=== PATIENT | female | born 1970 | race Caucasian/White ===

== ENCOUNTER 2016-06-22 16:45 | Emergency (ER) | payer SELFPAY ==
[2016-06-22] MEDS ORDERED: LORazepam 2 MG/ML INJ ONE (17:02)
[2016-06-22] MEDS ORDERED: KETOROLAC TROMETHAMINE 30 MG/ML VIAL ONE (17:06)
[2016-06-22] MEDS ORDERED: FENTANYL 250 MCG/5 ML VIAL ONE (17:06)
[2016-06-22] MEDS ORDERED: FENTANYL 100 MCG/2 ML VIAL ONE (17:23)
--- NOTE | 2016-06-22 20:27 | ER NURSING DOCUMENTATION ---
Nurse's Notes [facility] Name:Marbella Joyner Age:45 yrs Sex:Female :1970 Arrival Date:06/22/2016 Time:16:45 Bed4 Private MD:Tripp Fountain Diagnosis:Distal Radius Fracture Presentation: 06/22 16:45 Presenting complaint: EMS states: pt slipped and fell on the ice and complains of st significant right wrist and arm pain. Transition of care: patient was not received from another setting of care. Care prior to arrival: IV initiated. gauge and site left AC. 16:45 Method Of Arrival: EMS: 410 st 16:57 Acuity: MARITA 2 st 17:25 Care prior to arrival: Medication(s) given: Fentanyl 100MCG 100mcg Intranasal. st Triage Assessment: 16:45 General: Appears uncomfortable, Behavior is cooperative, crying. Pain: Complains of st pain in right arm Pain currently is 10 out of 10 on a pain scale. Cardiovascular: No deficits noted. Respiratory: No deficits noted. GI: No deficits noted. Musculoskeletal: Circulation, motion, and sensation intact right arm is in a splint by EMS Reports pain in right arm. Historical: - Allergies: No known drug Allergies; - Home Meds: 1. Spironolactone Oral 2. Percocet Oral 3. Xanax Oral 4. mucle relaxer PRN 5. gabapentin oral 6. Doxycycline Oral - PMHx: None; - PSHx: SHOULDER SURGERY; Appendectomy; - Tetanus: unknown. - Ebola Screening: : Patient denies exposure to infectious person. Patient denies travel to an Ebola-affected area in the 21 days before illness onset. . - Social history: Smoking status: Patient states was never smoker of tobacco. Patient uses alcohol occasionally. Screenin:30 Infectious Disease Risk None. Abuse screen: pt feels safe at home. Nutritional st screening: No deficits noted. Assessment: 17:11 General: pt continues to cry. st 17:23 General: pt is able to stop crying and states that the meds took the edge off the pain. st . 18:33 General: pt resting quietly. Pt is trying to find a ride. . st Vital Signs: 16:45 BP 145 / 92; Pulse 99; Resp 24; Temp 98.0; Pulse Ox 94% on R/A; Pain 10/10; st 17:55 BP 145 / 99; st 18:00 BP 129 / 80; Pulse 99; Pulse Ox 93% ; st 18:18 Pain 1/10; st 18:28 BP 123 / 71; Resp 18; Pain 1/10; st ED Course: 16:45 Patient arrived in ED. ama 16:45 Tripp Fountain is Private Physician. ama 16:48 Scotty Flanagan MD is Attending Physician. sc 16:51 Port Xray Completed. pm1 16:57 Hawa Goldsmith, RN is Primary Nurse. st 16:[address] 17:31 Valuables Remains with patient Patient has correct armband on for positive st identification. Bed in low position. Side rails up X 1. Pulse Ox - RN Monitoring Only NIBP On - RN Monitoring Only. Ice pack to injury. 17:37 Oxygen Oxygen administration via nasal cannula @ 2L/min. st 17:48 Assist Provider Assist provider with fracture care Set up for procedure. Performed by st Scotty Flanagan MD hematoma block and finger traps used. 18:01 Simeon Faulkner DO is Referral Physician. sc 18:27 Port Xray Completed. pm1 18:[address] Administered Medications: 16:57 Drug: Toradol 30 mg; Route: IVP; Site: left antecubital; st 17:14 Follow up: Response: Pain is unchanged, physician notified st 17:14 Drug: fentaNYL (PF) 100 mcg; Route: IVP; Infused Over: 3 mins; Site: left antecubital; st 18:52 Follow up: Response: Pain is decreased st Outcome: 18:02 Discharge ordered by . la 18:52 Condition: improved st 18:52 Discharge instructions given to patient, Instructed on discharge instructions, follow up and referral plans. medication usage, [facility] 18:52 IV D/Johnny st 20:26 Patient left the ED. mk4 06/23 09:45 Discharge F/U Call: Unable to reach: non-working number nf 12:20 Discharge F/U Call: Spoke with: patient. other: Name: patient called ER requesting an nf additional prescription be written for narcotics due to poor pain control; patient has regular prescription for percocet 7.25 - dosing range discussed with patient; narcotic alternatives for pain control discussed with patient including ice and elevation and ensuring her compression wrap was the correct tension - patient agreeable to alternative means and stated she would be satisified calling her PCP tomorrow about additional narcotics; May aware of phone call Signatures: Hawa Goldsmith RN RN st Friel, Nicole, RN RN nf Chew, Scott, MD MD sc McBride, Philisha pm1 David Young, Reg Reg serjio Christianson, Alfreda mk4
--- NOTE | 2016-06-22 20:27 | ER PHYSICIAN DOCUMENTATION ---
Physician Documentation [facility] Name:Marbella Joyner Age:45 yrs Sex:Female :1970 Arrival Date:06/22/2016 Time:16:45 Bed4 Private MD:Tripp Fountain ED, Scott Disposition: 06/22/16 18:02 Discharged to Home/Self Care. Impression: Distal Radius Fracture. - Condition is Good. - Discharge Instructions: FRACTURE, Upper Extremity. - Medical Reconciliation form form. - Follow up: Simeon Faulkner DO; When: 2 - 3 days; Reason: Recheck today's complaints, Continuance of care. - Problem is new. - Symptoms have improved. HPI: 06/22 17:54 This 45 yrs old Female presents to ER via EMS with complaints of Arm Injury - sc R. 17:54 The patient or guardian complains of decreased range of motion, deformity, injury, sc pain. The complaints affect the right wrist. Context: The problem was sustained outdoors, resulted from a fall. Onset: The symptom(s)/episode began/occurred just prior to arrival. Treatment prior to arrival includes: prescription medications, splinting the affected extremity. Associated signs and symptoms: The patient has no apparent associated signs or symptoms. multiple shoulder surgeries, daily percocet use for 3 years. Historical: - Allergies: No known drug Allergies; - Home Meds: 1. Spironolactone Oral 2. Percocet Oral 3. Xanax Oral 4. mucle relaxer PRN 5. gabapentin oral 6. Doxycycline Oral - PMHx: None; - PSHx: SHOULDER SURGERY; Appendectomy; - Tetanus: unknown. - Ebola Screening: : Patient denies exposure to infectious person. Patient denies travel to an Ebola-affected area in the 21 days before illness onset. . - Social history: Smoking status: Patient states was never smoker of tobacco. Patient uses alcohol occasionally. ROS: 17:57 Constitutional: Negative for fever, chills, and weight loss. sc Eyes: Negative for injury, pain, redness, and discharge. Neck: Negative for injury, pain, and swelling. Cardiovascular: Negative for chest pain, palpitations, and edema. Respiratory: Negative for shortness of breath, cough, wheezing, and pleuritic chest pain. Back: Negative for injury and pain. Skin: Negative for injury, rash, and discoloration. 17:57 Neuro: Negative for headache, weakness, numbness, tingling, and seizure. ga 17:57 MS/extremity: Positive for injury or acute deformity, Negative for paresthesias, tingling. Exam: Constitutional: This is a well developed, well nourished patient who is awake, alert, and in no acute distress. Head/Face: Normocephalic, atraumatic. Neck: Trachea midline, no thyromegaly or masses palpated, and no cervical lymphadenopathy. Supple, full range of motion without nuchal rigidity, or vertebral point tenderness. No meningismus. Cardiovascular: Regular rate and rhythm with a normal S1 and S2. No gallops, murmurs, or rubs. Normal PMI, no JVD. No pulse deficits. Respiratory: Lungs have equal breath sounds bilaterally, clear to auscultation and percussion. No rales, rhonchi or wheezes noted. No increased work of breathing, no retractions or nasal flaring. Abdomen/GI: Soft, non-tender, with normal bowel sounds. No distension or tympany. No guarding or rebound. No evidence of tenderness throughout. Skin: Warm, dry with normal turgor. Normal color with no rashes, no lesions, and no evidence of cellulitis. 17:57 Neuro: Awake and alert, GCS 15, oriented to person, place, time, and situation. ga Cranial nerves II-XII grossly intact. Motor strength 5/5 in all extremities. Sensory grossly intact. Cerebellar exam normal. Normal gait. 17:57 Musculoskeletal/extremity: Extremities: grossly normal except: decreased ROM, deformity, pain, Circulation is intact in all extremities. Sensation intact. Compartment Syndrome exam of affected extremity: is normal. Vital Signs: 16:45 BP 145 / 92; Pulse 99; Resp 24; Temp 98.0; Pulse Ox 94% on R/A; Pain 10/10; st 17:55 BP 145 / 99; st 18:00 BP 129 / 80; Pulse 99; Pulse Ox 93% ; st 18:18 Pain 1/10; st 18:28 BP 123 / 71; Resp 18; Pain 1/10; st Procedures: 17:58 Reduction: of the right wrist, using manipulation, Immobilized with OCL splint, Patient sc tolerated well. Post reduction film - reveals improved alignment. Splinting: Splint applied to right wrist using Orthoglass splint, applied by myself. post reduction film - reveals improved alignment, Examined by me, post splint application: neurovascular intact, Patient tolerated well. MDM: 16:48 Patient medically screened. ga 17:59 Differential diagnosis: closed fracture. Data reviewed: vital signs, nurses notes, ga radiologic studies, and as a result, I will discharge patient. Response to treatment: the patient's symptoms have markedly improved after treatment. Dispensed Medications: 16:57 Drug: Toradol 30 mg; Route: IVP; Site: left antecubital; st 17:14 Follow up: Response: Pain is unchanged, physician notified st 17:14 Drug: fentaNYL (PF) 100 mcg; Route: IVP; Infused Over: 3 mins; Site: left antecubital; st 18:52 Follow up: Response: Pain is decreased st Signatures: Hawa Goldsmith RN RN st Chew, Scott, MD MD sc King, Melody 4
== END 2016-06-22 20:27 | disposition home or self-care (01) ==
LOC: ER 16:45
DX: S52.501A Unspecified fracture of the lower end of right radius, initial encounter for closed fracture (principal); W00.0XXA Fall on same level due to ice and snow, initial encounter; Y92.89 Other specified places as the place of occurrence of the external cause; Y93.01 Activity, walking, marching and hiking; Z79.899 Other long term (current) drug therapy; Z99.89 Dependence on other enabling machines and devices; Z74.3 Need for continuous supervision
CPT/HCPCS: 29125; 96374; 96375; 99285; A0427; J1885; J2060

== ENCOUNTER 2016-06-23 18:35 | Observation (INO) | payer SELFPAY ==
[2016-06-23] MEDS ORDERED: ONDANSETRON HCL 4 MG/2 ML VIAL ONE (19:22)
[2016-06-23] MEDS ORDERED: HYDROmorphone HCL 1 MG/ML SYR ONE ×2 (19:22→19:41)
[2016-06-23 19:39] LABS: BASOPHIL# 0.1 X 10^3uL (0.0-0.1); BASOPHILS 0.9 % (0.0-2.0); EOSINOPHILS 3.1 % (0.0-6.0); EOSINOPHILS# 0.3 X 10^3uL (0.0-0.4); HEMATOCRIT 37.3 % (36.0-48.0); HEMOGLOBIN 12.6 g/dL (12.0-16.0); LYMPHOCYTES 28.5 % (20.0-40.0); LYMPHOCYTES# 2.3 X 10^3uL (0.8-3.8); MEAN CELL VOLUME 81.9 fL (80.0-100.0); MEAN CORPUS. HGB CONCENTRATION 33.8 g/dL (32.0-36.0); MEAN CORPUSCULAR HEMOGLOBIN 27.7 pg (29.0-35.0); MEAN PLATELET VOLUME 7.7 fL (7.4-10.4); MONOCYTES 11.2 % (2.0-10.0); MONOCYTES# 0.9 X 10^3uL (0.2-1.0); NEUTROPHILS 56.3 % (54.0-75.0); NEUTROPHILS# 4.5 X 10^3uL (2.6-6.7); PLATELET COUNT 277 X 10^3uL (130-440); RED BLOOD COUNT 4.55 X 10^6uL (4.20-6.10); RED CELL DISTRIBUTION WIDTH 12.8 % (11.5-14.5); WHITE BLOOD COUNT 8.1 X 10^3uL (3.9-10.7)
[2016-06-23 19:49] LABS: BLOOD UREA NITROGEN 19 mg/dL (7-17); CALCIUM 8.6 mg/dL (8.4-10.2); CHLORIDE 106 mmol/L (98-107); CREATININE 0.7 mg/dL (0.5-1.0); EST GLOMERULAR FILTRATION RATE > 60 mL/min; GLUCOSE 96 mg/dL (70-100); POTASSIUM 4.2 mmol/L (3.5-5.1); SODIUM 136 mmol/L (137-145)
[2016-06-23] MEDS ORDERED: HOME MEDICATION LIST NEEDED 1 EA EACH MISC ONE (19:50)
[2016-06-23 19:51] LABS: INR 1.1
[2016-06-23] MEDS ORDERED: ONDANSETRON HCL 4 MG/2 ML VIAL IV PRN (19:52)
[2016-06-23] MEDS ORDERED: NORMAL SALINE 1,000 ML IV SCH (20:00)
--- NOTE | 2016-06-23 21:02 | ER NURSING DOCUMENTATION ---
Nurse's Notes [facility] Name:Marbella Joyner Age:45 yrs Sex:Female :1970 Arrival Date:06/23/2016 Time:18:35 Bed6 Private MD:Tripp Fountain Diagnosis:Closed Lower End of Radius Fracture;Upper Extremity Pain-: Intractable Presentation: 06/23 18:38 Acuity: MARITA 4 tg 18:43 Presenting complaint: Patient states: Pt fx'd wrist (right) yesterday. Pain is worse, tg usual narcotic pain medicine is not helping. Transition of care: patient was not received from another setting of care. 18:43 Method Of Arrival: Private Vehicle tg Triage Assessment: 18:50 General: Appears distressed, Behavior is anxious, cooperative, tearful. Pain: Complains tg of pain in right arm Noted to be crying, grimacing. Neuro: Level of Consciousness is awake, alert. Cardiovascular: Capillary refill < 3 seconds. Respiratory: Respiratory effort is even, unlabored. Derm: Skin is pink, warm & dry. Musculoskeletal: Circulation, motion, and sensation intact Capillary refill < 3 seconds in right fingers right UE splinted with orthoglass and kip wrap. Dr. Dixon loosened kip wrap and re-wrapped it. Historical: - Allergies: No known drug Allergies; - Home Meds: 1. Spironolactone Oral 2. Percocet Oral 3. Xanax Oral 4. Flexeril Oral 5. gabapentin oral 6. Doxycycline Oral - PMHx: Distal Radius Fracture (June 22, 2016); CHRONIC PAIN; - PSHx: APPENDECTOMY; SHOULDER SURGERY; - Tetanus: < 10 years. - Ebola Screening: : Patient negative for fever greater than or equal to 101.5 degrees Fahrenheit, and additional compatible Ebola Virus Disease symptoms. Patient denies exposure to infectious person. Patient denies travel to an Ebola-affected area in the 21 days before illness onset. No symptoms or risks identified at this time. . - Immunization history: Flu Vaccine >1 year. - Social history: Smoking status: Patient states was never smoker of tobacco. Screenin:52 Infectious Disease Risk Unable to Obtain. Abuse screen: Denies threats or abuse. Denies tg injuries from another. Nutritional screening: No deficits noted. Assessment: 19:00 See Triage Assessment done by same RN. mk4 Vital Signs: 18:43 BP 120 / 94; Pulse 108; Resp 18; Pulse Ox 99% on R/A; tg 19:30 BP 112 / 76; Pulse 110; Resp 18; Pulse Ox 88% on R/A; Pain 7/10; mk4 20:25 BP 106 / 78; Pulse 94; Resp 17; Pulse Ox 99% on 3 lpm NC; Pain 2/10; mk4 20:56 BP 103 / 76; Pulse 77; Resp 16; Pulse Ox 99% on 3 lpm NC; Pain 2/10; mk4 Sam Coma Score: 19:00 Eye Response: spontaneous(4). Verbal Response: oriented(5). Motor Response: obeys cd commands(6). Total: 15. ED Course: 18:36 Patient arrived in ED. arc 18:36 Tripp Fountain is Private Physician. arc 18:37 Boo Dixon MD is Attending Physician. cd 18:37 Ham Vasquez RN is Primary Nurse. tg 18:38 Triage completed. tg 18:51 Arm band placed on Bed in low position Call Light in Reach HOB Elevated. tg 18:52 Valuables Remains with patient. tg 18:53 Report given to KHADIJAH Gant. tg 19:15 Inserted saline lock: 20 gauge in left hand and blood collected. em3 19:30 Oxygen Oxygen administration via nasal cannula @ 3L/min. mk4 19:43 Simeon Faulkner DO is Admitting Physician. cd 20:06 Labs drawn. EKG done. (by ED staff). mk4 20:58 Pulse Ox - RN Monitoring Only NIBP On - RN Monitoring Only. mk4 22:07 EKG attached mk4 Administered Medications: 19:16 CANCELLED (Physician Discretion): Toradol 60 mg IM once cd 19:16 CANCELLED (Physician Discretion): Dilaudid 3 mg IM once cd 19:30 Drug: Zofran 4 mg; Route: IVP; Rate: 4 bolus; Infused Over: 2 mins; Site: left hand; mk4 20:20 Follow up: Response: No adverse reaction; Nausea is decreased mk4 20:03 Drug: Dilaudid 1 mg; Route: IVP; Rate: 1 bolus; Infused Over: 2 mins; Site: left hand; mk4 20:51 Follow up: Response: No adverse reaction; Pain is decreased mk4 20:35 Drug: Dilaudid 1 mg; Route: IVP; Rate: 1 bolus; Infused Over: 2 mins; Site: left hand; 4 20:50 Follow up: Response: No adverse reaction; Pain is decreased 4 Outcome: 19:47 Decision to Admit by Provider. cd 20:56 Admitted to Med/surg accompanied by nurse. 4 20:56 Condition: good 20:56 Report given to Immanuel LUCIO 21:01 Patient left the ED. 4 Signatures: Ham Vasquez RN RN Boo Mckeon MD MD cd Meiklejohn, Eric em3 Alfreda Christianson mk4 Eunice Flanagan, Reg Reg arc
--- NOTE | 2016-06-23 21:02 | ER PHYSICIAN DOCUMENTATION ---
Physician Documentation [facility] Name:Marbella Joyner Age:45 yrs Sex:Female :1970 Arrival Date:06/23/2016 Time:18:35 Bed6 Private MD:Tripp Fountain ED, Chris Disposition: 06/23/16 19:47 Admit ordered for Simeon Faulkner. Preliminary diagnosis are Closed Lower End of Radius Fracture, Upper Extremity Pain - : Intractable. - Bed requested for Medical/Surgical. - Condition is Fair. - Problem is an ongoing problem. - Symptoms have improved. 23 HR OBS No HPI: 06/23 18:40 This 45 yrs old Female presents to ER via Private Vehicle with complaints of cd Arm Pain. 18:40 The patient or guardian complains of pain, that is acute, Patient sustained a right cd distal radius fracture after slipping on ice and FOOSHing yesterday. She was seen and treated by Dr. Flanagan. He did an excellent job reducing her fracture under a hematoma block. She was splinted and was told to take her Percocet for pain. She is on chronic narcotics due to a previous right shoulder / humerus injury that required ORIF. She called earlier in the day because of pain and was told to unwrap the kip wraps on the Orthoglass Splint, pull it open a little and gent;y rewrap the splint. She was told to elevate it about her heart and keep ice packs on it. She was told to take her Oxycodone 7.5 mg by mouth every 4 6 hours for pain. She did not open the splint and rewrap it. She continued to have worsening pain and therefore was told to come to the ED for evalua. The complaints affect the right wrist. Onset: The symptom(s)/episode began/occurred acutely, yesterday, and became worse today. Treatment prior to arrival includes: prescription medications, Oxycodone. Severity of symptoms: At their worst the symptoms were severe, in the emergency department the symptoms are unchanged. Historical: - Allergies: No known drug Allergies; - Home Meds: 1. Spironolactone Oral 2. Percocet Oral 3. Xanax Oral 4. Flexeril Oral 5. gabapentin oral 6. Doxycycline Oral - PMHx: Distal Radius Fracture (June 22, 2016); CHRONIC PAIN; - PSHx: APPENDECTOMY; SHOULDER SURGERY; - Tetanus: < 10 years. - Ebola Screening: : Patient negative for fever greater than or equal to 101.5 degrees Fahrenheit, and additional compatible Ebola Virus Disease symptoms. Patient denies exposure to infectious person. Patient denies travel to an Ebola-affected area in the 21 days before illness onset. No symptoms or risks identified at this time. . - Immunization history: Flu Vaccine >1 year. - Social history: Smoking status: Patient states was never smoker of tobacco. ROS: 19:00 Constitutional: Positive for poor PO intake, Negative for fever. cd 19:00 MS/extremity: Positive for pain, swelling, tingling. 19:00 Skin: Positive for swelling, of the fingers of her right hand. 19:00 All other systems are negative. Exam: 19:00 Neck: Trachea midline, no thyromegaly or masses palpated, and no cervical cd lymphadenopathy. Supple, full range of motion without nuchal rigidity, or vertebral point tenderness. No Meningismus. Cardiovascular: Regular rate and rhythm with a normal S1 and S2. No gallops, murmurs, or rubs. Normal PMI, no JVD. No pulse deficits. Respiratory: Lungs have equal breath sounds bilaterally, clear to auscultation and percussion. No rales, rhonchi or wheezes noted. No increased work of breathing, no retractions or nasal flaring. Abdomen/GI: Soft, non-tender, with normal bowel sounds. No distension or tympany. No guarding or rebound. No evidence of tenderness throughout. Back: No spinal tenderness. No costovertebral tenderness. Full range of motion. 19:00 Neuro: Awake and alert, GCS 15, oriented to person, place, time, and situation. cd Cranial nerves II-XII grossly intact. Motor strength 5/5 in all extremities. Sensory grossly intact. Cerebellar exam normal. Normal gait. 19:00 Constitutional: The patient appears alert, awake, well developed, well nourished, anxious, obese, in obvious distress, severely distressed. 19:00 Musculoskeletal/extremity: Extremities: grossly normal except: noted in the right wrist and right arm: pain, swelling, Circulation is intact in all extremities. Sensation intact. 19:00 Skin: Warm, dry with normal turgor. Normal color with no rashes, no lesions, and no cd evidence of cellulitis. Head/Face: Normocephalic, atraumatic. ENT: Nares patent. No nasal discharge, no septal abnormalities noted. Tympanic membranes are normal and external auditory canals are clear. Oropharynx with no redness, swelling, or masses, exudates, or evidence of obstruction, uvula midline. Mucous membranes moist. 19:20 Chest/axilla: Normal chest wall appearance and motion. Nontender with no deformity. cd No lesions are appreciated. Vital Signs: 18:43 BP 120 / 94; Pulse 108; Resp 18; Pulse Ox 99% on R/A; tg 19:30 BP 112 / 76; Pulse 110; Resp 18; Pulse Ox 88% on R/A; Pain 7/10; mk4 20:25 BP 106 / 78; Pulse 94; Resp 17; Pulse Ox 99% on 3 lpm NC; Pain 2/10; mk4 20:56 BP 103 / 76; Pulse 77; Resp 16; Pulse Ox 99% on 3 lpm NC; Pain 2/10; mk4 Sam Coma Score: 19:00 Eye Response: spontaneous(4). Verbal Response: oriented(5). Motor Response: obeys cd commands(6). Total: 15. MDM: 18:37 Patient medically screened. cd 18:50 Data interpreted: Pulse oximetry: on room air is 99 %. Interpretation: normal. cd Counseling: I had a detailed discussion with the patient and/or guardian regarding: the historical points, exam findings, and any diagnostic results supporting the discharge/admit diagnosis, lab results, the need for further work-up and treatment in the hospital, for observation, pain control and ORIF tomorrow. 19:20 Physician consultation: Simeon Faulkner DO was called at 19:15, was contacted at 19:15, cd regarding admission, to the floor, consult, patient's condition, need to evaluate the patient as soon as possible, and will see patient in inpatient room, shortly, later today. Admission orders: after a detailed discussion of the patient's condition and case, the admit orders are written by me. 19:30 Data reviewed: vital signs, nurses notes, old medical records, lab test result(s), EKG, cd and as a result, I will admit patient, initiate a consult, with an orthopedic surgeon. 20:18 Differential diagnosis: closed fracture, with increased pain due to compression and cd swelling. ECG:. 22:07 EKG attached mk4 06/23 19:42 Order name: CBC AUTO DIF, MDIF/RMOR IF IND; Complete Time: 12:47 EDMS 06/25 12:47 Interpretation: Normal. 06/23 19:51 Order name: BASIC METABOLIC PANEL; Complete Time: 12:47 EDMS 06/25 12:47 Interpretation: Normal. 06/23 19:53 Order name: PROTIME/INR; Complete Time: 12:47 EDMS 06/25 12:47 Interpretation: Normal. 06/23 19:16 Order name: Iv Saline Lock; Complete Time: 22:09 06/23 19:16 Order name: EKG - 12 Lead; Complete Time: 22:09 06/23 20:55 Order name: Oxygen; Complete Time: 20:55 mk4 EC:18 Rate is 104 beats/min. Rhythm is regular. QRS [place] is Normal. MD interval is normal. cd QRS interval is normal. QT interval is normal. No Q waves. T waves are Normal. No ST changes noted. Clinical impression: Normal ECG and No evidence of ischemia. Interpreted by me. Dispensed Medications: 19:16 CANCELLED (Physician Discretion): Toradol 60 mg IM once cd 19:16 CANCELLED (Physician Discretion): Dilaudid 3 mg IM once cd 19:30 Drug: Zofran 4 mg; Route: IVP; Rate: 4 bolus; Infused Over: 2 mins; Site: left hand; mk4 20:20 Follow up: Response: No adverse reaction; Nausea is decreased mk4 20:03 Drug: Dilaudid 1 mg; Route: IVP; Rate: 1 bolus; Infused Over: 2 mins; Site: left hand; mk4 20:51 Follow up: Response: No adverse reaction; Pain is decreased mk4 20:35 Drug: Dilaudid 1 mg; Route: IVP; Rate: 1 bolus; Infused Over: 2 mins; Site: left hand; mk4 20:50 Follow up: Response: No adverse reaction; Pain is decreased mk4 Signatures: Ham Vasquez RN RN Boo Mckeon MD MD cd King, Melody mk4
[2016-06-23] MEDS: HYDROmorphone HCL 1 MG/ML SYR IV PRN ×3 (21:50→22:52)
[2016-06-23] MEDS ORDERED: HYDROmorphone HCL 1 MG/ML SYR IV PRN (23:45)
[2016-06-24] MEDS: HYDROmorphone HCL 1 MG/ML SYR IV PRN ×3 (00:56→07:33)
--- NOTE | 2016-06-24 07:02 | HISTORY & PHYSICAL ---
DATE OF CONSULTATION: 06/23/16 PHYSICIAN: Simeon Faulkner DO HISTORY OF PRESENT ILLNESS: Patient is a 45-year-old female who was walking in the icy parking lot of the [employer] yesterday and slipped and fell and had a fall on her outstretched right hand. She was seen in the Emergency Department was splinted and discharged home. She presented back to the Emergency Department complaining of severe wrist pain and pain in the fingers with some swelling and diminished sensation in the hand. She is being admitted for pain control and for neurovascular checks. PAST MEDICAL HISTORY 1. Right shoulder fracture 10 years ago with subsequent arthroscopies. 2. She has degenerative disk disease of L5, S1 and of C3, C4. 3. She has cystic acne. ALLERGIES: No known drug allergies. MEDICATIONS Spirolactone. Doxycycline. Topical cystic acne medication. Flexeril as needed. Percocet as needed for neck and back pain. REVIEW OF SYSTEMS: Normal with exception of the right upper extremity. PHYSICAL EXAMINATION VITAL SIGNS: Temperature 37. Blood pressure 120/74, pulse 107, respiratory rate 16. She is saturating 98% on 2 liters nasal cannula. HEENT: Pupils are equally round and reactive to light and accommodation. Extraocular muscles are intact. LUNGS: Clear to auscultation bilaterally with no wheezes, rales or rhonchi. HEART: Regular rate and rhythm with normal S1, S2. ABDOMEN: Soft, nontender, nondistended. RIGHT WRIST: Demonstrates scars consistent with the patient's prior history of surgery in this area. The wrist has positive tenderness to palpation over the dorsum of the wrist. The fingers are swollen. At this point, the patient has had a few hours of good elevation and she has normal sensation in the fingers with gross motor intact, although it does cause some pain when the patient moves her fingers, which is to be expected with this fracture pattern. All the fingers are adequately perfused. Compartments are soft. No abnormal pain with passive stretch; however, the patient does have some pain due to the presence of a fracture. IMAGING: Plain film x-rays demonstrate a distal radius fracture with 45 degrees of dorsal angulation on prereduction films. There is also a fracture of the ulnar styloid. There is some comminution at the fracture site; however, there is no intraarticular components of this fracture pattern. IMPRESSION: Right distal radius fracture. PLAN: Keep the patient in a Dumars splint with the right upper extremity elevated well above heart level with ice in place. The patient is splinted. The patient will be NPO at midnight, and will need to undergo open reduction, internal fixation tomorrow due to significant pre-reduction angulation coupled with comminution and involvement of the ulnar styloid, indicating an overall high energy fracture pattern which would be optimally treated with open reduction, internal fixation. VY
[2016-06-24] MEDS ORDERED: DEXTROSE 5% NS 1000 ML 1,000 ML IV SCH ×3 (09:12→12:31)
[2016-06-24] MEDS ORDERED: CEFAZOLIN SODIUM 1 GM in NORMAL SALINE MINI-BAG+ 100 ML IV ONE (09:12)
[2016-06-24] MEDS ORDERED: HYDROmorphone HCL 1 MG/ML SYR IV PRN ×4 (09:12→12:31)
[2016-06-24] MEDS ORDERED: CEFAZOLIN SODIUM 1 GM/10 ML VIAL ONE (09:41)
[2016-06-24] MEDS ORDERED: MIDAZOLAM HCL 2 MG/2 ML SYR IV ONE ×2 (10:18)
[2016-06-24] MEDS ORDERED: LIDOCAINE HCL 1% 20 ML VIAL SUBCUT ONE ×3 (10:18→12:31)
[2016-06-24] MEDS ORDERED: BACITRACIN 14 APP/14 GM TUBE TOPICAL ONE (10:20)
[2016-06-24] MEDS ORDERED: BACITRACIN 50,000 UNITS VIAL IM ONE (10:21)
[2016-06-24] MEDS ORDERED: BUPIVACAINE/EPI 0.25% 1 VIAL VIAL ONE (10:21)
[2016-06-24] MEDS ORDERED: NORMAL SALINE FLUSH 30 ML ONE (10:21)
[2016-06-24] MEDS ORDERED: ROPIVACAINE HCL 0.5% 30 ML ONE (10:27)
[2016-06-24] MEDS ORDERED: MIDAZOLAM HCL 2 MG/2 ML VIAL ONE (10:27)
[2016-06-24] MEDS ORDERED: FAMOTIDINE IN SALINE, ISO-OSM 50 ML IV ONE (10:27)
[2016-06-24] MEDS ORDERED: FAMOTIDINE IN SALINE, ISO-OSM 20 MG/50 ML PIGGYBACK IV SCH ×2 (10:30→12:31)
[2016-06-24] MEDS: FENTANYL 100 MCG/2 ML VIAL ONE ×2 (10:31→10:33)
[2016-06-24] MEDS ORDERED: LACTATED RINGERS 1,000 ML IV SCH ×4 (11:00→13:00)
[2016-06-24] MEDS ORDERED: FENTANYL 100 MCG/2 ML VIAL ONE (11:01)
--- NOTE | 2016-06-24 12:29 | DC SUMMARY: Orthopedic Note ---
Discharge Summary: Surg/OB Provider: Date of Admission: 06/23/16 Admitting Provider: JUAN MIGUEL TITUS DO Attending Provider: JUAN MIGUEL TITUS DO Discharging Provider: JUAN MIGUEL TITUS DO Primary Care Provider: Discharge Date: 06/24/16 - Diagnosis (1) Closed fracture of right distal radius and ulna Status: Acute Qualifiers: Encounter type: initial encounter Qualified Code(s): S52.501A - Unspecified fracture of the lower end of right radius, initial encounter for closed fracture; S52.601A - Unspecified fracture of lower end of right ulna, initial encounter for closed fracture Hospital Course: Ms. SESAY is a 45 year old female who was admitted to the hospital on June 23 for pain control from a right distal radius fracture and neurovascular checks. The patient underwent open reduction internal fixation on 24 June. The patient did well postoperatively and her pain was well- controlled with oral analgesia. She'll be discharged home with instructions to keep her arm iced and elevated above heart level. She will follow up in my clinic at 8-10 days postoperatively. Discharge - Patient/Caregiver Discharge Instructions Diet: regular Follow up: JUAN MIGUEL TITUS DO [ACTIVE (Staff Physician)] - 7 Days Overall discharge status: stable Disposition: HOME, SELF-CARE Orthopedic: Discharge Phy Exam - Latest Vital Signs and I&O Latest Vital Signs/I&O: Vital Signs Temp 36.1 C L 06/24/16 09:29 Pulse 72 06/24/16 09:29 Resp 18 06/24/16 09:29 BP 105/67 06/24/16 09:29 Pulse Ox 98 06/24/16 09:29 Intake & Output 06/23/16 06/24/16 06/24/16 17:59 05:59 17:59 Intake Total 500 Output Total 275 Balance 225 Weight 77.564 kg 80.5 kg Intake: Oral 500 Output: Urine 275 Other: Urine Appearance Clear Urine Color Yellow Voiding Method Toilet # Voids 1 - Post-Operative Exam Post-op Day: 0 Dressing Status: dry & intact Distal Pulses: +2 Active Motor: intact Sensation: intact Discharge Summary Data - Medication History Medication History: Home Medications Cyclobenzaprine HCl [Flexeril*] 10 mg PO TID PRN 06/24/16 Doxycycline [Doxycycline Hyclate*] 100 mg PO DAILY 06/24/16 Gabapentin [Gabapentin] 300 mg PO HS PRN 06/24/16 Meloxicam [Meloxicam] 15 mg PO DAILY@1200 06/24/16 Spironolactone [Aldactone*] 25 mg PO DAILY 06/24/16 Triamcinolone Acetonide [Nasacort] 1 spray NS DAILY PRN 06/24/16 oxyCODONE HCL/ACETAMINOPHEN [Percocet 7.5-325 mg Tablet] 1 tab PO Q6H PRN Inpatient Medications 06/24/16 10:18 Dextrose 5% Ns 1000 ml [D5 Ns 1000 ml] 1,000 ml IV CONT HYDROmorphone HCL [Dilaudid] 1 mg IV Q4H PRN 06/24/16 10:30 Famotidine in Saline, Iso-Osm [Pepcid Injection] 20 mg IV .PRE OP 06/24/16 11:00 Lactated Ringers [Lr 1000 ml Bag] 1,000 ml IV CONT Procedures and tests throughout hospitalization: Pending Orders 06/24/16 09:12 NPO After midnight 0000 06/24/16 10:18 Insert Peripheral IV ONCE Dextrose 5% Ns 1000 ml [D5 Ns 1000 ml] 1,000 ml IV CONT HYDROmorphone HCL [Dilaudid] 1 mg IV Q4H PRN 06/24/16 10:30 Famotidine in Saline, Iso-Osm [Pepcid Injection] 20 mg IV .PRE OP 06/24/16 11:00 Lactated Ringers [Lr 1000 ml Bag] 1,000 ml IV CONT 06/24/16 11:57 FLUOROSCOPY, > 1HOUR [id number] [FLUORO] Routine WRIST; [place] [id number] [RAD] Routine
[2016-06-24 12:30] VITALS: TEMP 97.2
[2016-06-24 12:31] VITALS: RESP 16
[2016-06-24] MEDS ORDERED: MORPHINE SULFATE 10 MG/ML SYR IV PRN (12:31)
[2016-06-24] MEDS ORDERED: ONDANSETRON HCL 4 MG/2 ML VIAL IV PRN (12:31)
[2016-06-24] MEDS ORDERED: FENTANYL 100 MCG/2 ML VIAL IV PRN (12:31)
[2016-06-24 13:26] VITALS: BP 104/67; PULSE 83; O2SAT 92
--- NOTE | 2016-06-24 16:04 | OPERATIVE REPORT ---
DATE OF SURGERY: 06/24/16 SURGEON: Simeon Faulkner DO ANESTHESIA: General. PREOPERATIVE DIAGNOSIS: Right distal radius fracture. POSTOPERATIVE DIAGNOSIS: Right distal radius fracture. OPERATION PERFORMED: Open reduction, internal fixation right distal radius fracture. ESTIMATED BLOOD LOSS: Minimal. TOTAL TOURNIQUET TIME: 59 minutes. PROCEDURE NOTE: The patient was brought to the operating room suite and after administration of general anesthesia the right upper extremity was prepped and draped in a sterile fashion. All bony prominences were well padded. The incision over the volar aspect of the right distal radius was injected with 0.25 % bupivacaine with epinephrine prior to incision. The incision was made longitudinally over the level of the flexor carpi radialis tendon and dissection was carried down bluntly and sharply to the structure. The flexor carpal radialis was retracted radially, and the deep layer of the tendon sheath was incised revealing the pronator quadratus which was swept ulnarly revealing the fracture. The fracture hematoma was evacuated and the area was copiously irrigated with bacitracin infused with normal saline. A reduction maneuver was performed. The reduction was maintained utilizing a K-wire which was shot through the radial styloid with bicortical purchase. A [facility] standard plate was placed on the distal radius and was pinned into place with K- wires. Orthogonal fluoroscopic imaging confirmed appropriate placement of the plate. The shaft screws and distal screws were inserted after predrilling and measuring the appropriate lengths. The distal screws were a hybrid of both fully threaded and smooth pegs. The fluoroscopic imaging was utilized again to confirm appropriate length screws in positioning. The area was copiously irrigated with bacitracin infused with normal saline and was closed in a stepwise fashion utilizing 0 Vicryl for the deep layer and to partially repair the pronator quadratus. The subcutaneous fascia and tendon sheath layer was closed with 0 Vicryl, followed by 3-0 Vicryl subcutaneously below the skin, followed by 3-0 nylon in a running modified horizontal mattress suture at the level of the skin. The operative site was again injected with 0.25 bupivacaine with epinephrine. The incision was dressed with bacitracin ointment, Xeroform, 4x4s, ABDs, cast padding, and 4x4s between the fingers, followed by a well-padded Volar plaster splint, followed by an Ankit bandage. The patient was transferred from the operating room suite to the recovery room in stable condition. VY
--- NOTE | 2016-06-27 05:34 | RADIOLOGY REPORT ---
Three views of the right wrist are compared with films from 06/22/2016. There has been interval reduction of the distal radius fracture, which is now secured with a plate and multiple screws. No other change is identified. IMPRESSION: Interval open reduction and internal fixation of the right distal radius fracture. VY
== END 2016-06-24 12:29 | disposition home or self-care (01) ==
LOC: ER 18:35 → UNDOADMIN 20:41 → IN 20:41 → INTOOBSV 20:41
PROVIDERS: ADMIT Orthopaedic Surgery; ATTEND Orthopaedic Surgery
DX: S52.571A Other intraarticular fracture of lower end of right radius, initial encounter for closed fracture (principal); S52.691A Other fracture of lower end of right ulna, initial encounter for closed fracture; W01.0XXA Fall on same level from slipping, tripping and stumbling without subsequent striking against object, initial encounter
CPT/HCPCS: 76001; 80048; 85025; 85610; 93005; 96374; 96375; 96376; 99285; C1713; G0378; J0690; J1170; J2250; J2405; J2795; J7030

== ENCOUNTER 2016-06-24 23:14 | Observation (INO) | payer SELFPAY ==
[2016-06-24] MEDS ORDERED: HYDROmorphone HCL 1 MG/ML SYR ONE (23:38)
[2016-06-25] MEDS ORDERED: HYDROmorphone HCL 1 MG/ML SYR ONE (05:46)
[2016-06-25] MEDS ORDERED: LIDOCAINE HCL 1% 20 ML VIAL ONE (10:24)
[2016-06-25] MEDS ORDERED: HOME MEDICATION LIST NEEDED 1 EA EACH MC ONE (10:51)
[2016-06-25] MEDS ORDERED: NORMAL SALINE 1,000 ML IV SCH (11:00)
--- NOTE | 2016-06-25 11:29 | ER PHYSICIAN DOCUMENTATION ---
Physician Documentation [facility] Name:Marbella Joyner Age:45 yrs Sex:Female :1970 Arrival Date:06/24/2016 Time:23:14 Bed1 Private MD:Tripp Fountain ED, Scott Disposition: 06/25/16 10:48 Admit ordered for Joshua Faulkneron. Preliminary diagnosis is Postoperative Pain- Acute. - Bed requested for Medical/Surgical. - Condition is Serious. - Problem is an ongoing problem. - Symptoms have improved. 23 HR OBS Yes HPI: 06/25 10:41 This 45 yrs old Female presents to ER via Walk In with complaints of Post sc Surgical Pain. 10:41 The patient or guardian complains of pain, that is acute, swelling. The complaints sc affect the right wrist. Context: The problem was sustained at a post op, stable attendant block should be wearing off. Onset: The symptom(s)/episode began/occurred gradually. Treatment prior to arrival includes: prescription medications, hydrocodone. Associated signs and symptoms: Pertinent positives: tingling. Historical: - Allergies: No known drug Allergies; - Home Meds: 1. gabapentin oral 2. Percocet Oral 3. dilaudid 4. Spironolactone Oral 5. meloxicam oral 6. Doxycycline Oral - PMHx: None; - PSHx: right arm repair; - Tetanus: < 10 years. - Ebola Screening: : Patient negative for fever greater than or equal to 101.5 degrees Fahrenheit, and additional compatible Ebola Virus Disease symptoms. Patient denies exposure to infectious person. Patient denies travel to an Ebola-affected area in the 21 days before illness onset. No symptoms or risks identified at this time. . - Immunization history: Flu Vaccine None. - Social history: Smoking status: Patient states was never smoker of tobacco. Patient uses alcohol only on a social basis. - Code Status:: Full code. ROS: 10:43 Constitutional: Negative for fever, chills, and weight loss. sc Eyes: Negative for injury, pain, redness, and discharge. ENT: Negative for injury, pain, and discharge. Neck: Negative for injury, pain, and swelling. Cardiovascular: Negative for chest pain, palpitations, and edema. Respiratory: Negative for shortness of breath, cough, wheezing, and pleuritic chest pain. Abdomen/GI: Negative for abdominal pain, nausea, vomiting, diarrhea, and constipation. Back: Negative for injury and pain. 10:43 Skin: Negative for injury, rash, and discoloration. sc 10:43 MS/extremity: Positive for pain, paresthesias, swelling, Negative for decreased range of motion. 10:43 Neuro: Positive for tingling. Exam: Constitutional: This is a well developed, well nourished patient who is awake, alert, and in no acute distress. Head/Face: Normocephalic, atraumatic. Eyes: Pupils equal round and reactive to light, extra-ocular motions intact. Lids and lashes normal. Conjunctiva and sclera are non-icteric and not injected. Cornea within normal limits. Periorbital areas with no swelling, redness, or edema. Cardiovascular: Regular rate and rhythm with a normal S1 and S2. No gallops, murmurs, or rubs. Normal PMI, no JVD. No pulse deficits. Respiratory: Lungs have equal breath sounds bilaterally, clear to auscultation and percussion. No rales, rhonchi or wheezes noted. No increased work of breathing, no retractions or nasal flaring. Skin: Warm, dry with normal turgor. Normal color with no rashes, no lesions, and no evidence of cellulitis. 10:43 Neuro: Awake and alert, GCS 15, oriented to person, place, time, and situation. sc Cranial nerves II-XII grossly intact. Motor strength 5/5 in all extremities. Sensory grossly intact. Cerebellar exam normal. Normal gait. 10:43 Musculoskeletal/extremity: Extremities: grossly normal except: pain, swelling, tenderness, Circulation is intact in all extremities. Perfusion: the extremity is pink, warm, with brisk capillary refill, Tingling of extremity. Compartment Syndrome exam of affected extremity: no numbness, no palor, no weak pulses, severe pain, tingling. Vital Signs: 06/24 23:38 BP 123 / 70; Pulse 115; Resp 24; Temp 98.6; Pulse Ox 93% on R/A; Weight 63.5 kg; Height lb 5 ft. 5 in. (165.10 cm); Pain 9/10; 06/25 01:28 BP 100 / 70; Pulse 98; Resp 19; Pain 6/10; lb 05:46 BP 122 / 75; Pulse 88; Resp 18; Pain 9/10; lb 07:20 Resp 20; cb 10:51 BP 105 / 61; Pulse 87; Resp 18; Pulse Ox 98% 2 lpm ; ma 06/24 23:38 Body Mass Index 23.30 (63.50 kg, 165.10 cm) lb MDM: 06/24 23:53 Patient medically screened. nm 06/25 10:45 Differential diagnosis: nerve contusion vs compartment syndrome vs narcotic tolerance. nm Data reviewed: vital signs, nurses notes, old medical records, radiologic studies, and as a result, I will initiate a consult, with an orthopedic surgeon. Physician consultation: Simeon Faulkner was called at 07:00, was contacted at 07:00, regarding consult, and will see patient in ED, immediately, in the emergency department to see patient at 08:00. Dispensed Medications: 06/24 23:32 Drug: Dilaudid 2 mg; Route: IM; Site: left deltoid; lb 06/25 00:16 Follow up: Response: Pain is decreased lb 05:47 Drug: Dilaudid 2 mg; Route: IM; Site: left deltoid; lb 07:24 Follow up: Response: Pain is decreased cb Signatures: Machelle Polk RN RN cb Abuso, Melanie, RN RN ma Chew, Scott, MD MD sc Bollock, Lynda lb
--- NOTE | 2016-06-25 11:29 | ER NURSING DOCUMENTATION ---
Nurse's Notes [facility] Name:Marbella Joyner Age:45 yrs Sex:Female :1970 Arrival Date:06/24/2016 Time:23:14 Bed1 Private MD:Tripp Fountain Diagnosis:Postoperative Pain- Acute Presentation: 06/24 23:21 Presenting complaint: Patient states: surgery today on right forearm for repair of fx lb rad/ulna. c/o severe pain even after taking pain meds. Transition of care: Home. Notified ED Physician of Dr. Flanagan notified. 23:21 Acuity: MARITA 3 lb 23:21 Method Of Arrival: Walk In 23:26 Care prior to arrival: Medication(s) given: percocet, dilaudid. Triage Assessment: 23:37 General: Appears distressed, Behavior is anxious, crying. Pain: Complains of pain in lb right wrist and palmar aspect of right forearm Pain does not radiate. Pain currently is 9 out of 10 on a pain scale. Neuro: Reports numbness in right wrist and palmar aspect of right forearm. Historical: - Allergies: No known drug Allergies; - Home Meds: 1. gabapentin oral 2. Percocet Oral 3. dilaudid 4. Spironolactone Oral 5. meloxicam oral 6. Doxycycline Oral - PMHx: None; - PSHx: right arm repair; - Tetanus: < 10 years. - Ebola Screening: : Patient negative for fever greater than or equal to 101.5 degrees Fahrenheit, and additional compatible Ebola Virus Disease symptoms. Patient denies exposure to infectious person. Patient denies travel to an Ebola-affected area in the 21 days before illness onset. No symptoms or risks identified at this time. . - Immunization history: Flu Vaccine None. - Social history: Smoking status: Patient states was never smoker of tobacco. Patient uses alcohol only on a social basis. - Code Status:: Full code. Screenin:38 Infectious Disease Risk None. Abuse screen: Denies threats or abuse. Denies injuries lb from another. Nutritional screening: No deficits noted. Assessment: 23:38 See Triage Assessment done by same RN. 06/25 01:26 Reassessment: pt took own percocet 7.5mg for pain control. 03:00 Reassessment: asleep when checked. resp easy. Reassessment: awake, c/o increased pain lb to right forearm. medicated per order from MD. 07:22 Reassessment: Patient states symptoms have improved. patient sleeping soundly with even cb respirations and ice on postop R arm. 07:45 Reassessment: able to wiggle fingers and does have sensation but describes as sanding cb feeling. 11:27 Reassessment: Patient appears in no apparent distress at this time. Up to bathroom with ma minimal assist. Vital Signs: 06/24 23:38 BP 123 / 70; Pulse 115; Resp 24; Temp 98.6; Pulse Ox 93% on R/A; Weight 63.5 kg; Height lb 5 ft. 5 in. (165.10 cm); Pain 9/10; 06/25 01:28 BP 100 / 70; Pulse 98; Resp 19; Pain 6/10; lb 05:46 BP 122 / 75; Pulse 88; Resp 18; Pain 9/10; lb 07:20 Resp 20; cb 10:51 BP 105 / 61; Pulse 87; Resp 18; Pulse Ox 98% 2 lpm ; ma 06/24 23:38 Body Mass Index 23.30 (63.50 kg, 165.10 cm) lb ED Course: 06/24 23:15 Patient arrived in ED. em2 23:15 Tripp Fountain is Private Physician. em2 23:21 Gabbi Wu is Primary Nurse. lb 23:26 Triage completed. lb 23:39 Valuables Remains with patient Call light in reach. lb 23:39 ice to right wrist. lb 23:53 Scotty Flanagan MD is Attending Physician. wy 06/25 00:10 Simeon Faulkner DO is Referral Physician. sc 07:20 Report received from KHADIJAH Seo. cb 07:[address] Faulkner. cb 08:00 Ice pack to injury. and to neck also. cb 08:30 Diet: Patient given regular meal. cb 10:45 Oxygen Oxygen administration via nasal cannula @ 2L/min. ma 10:47 Simeon Faulkner DO is Admitting Physician. sc 10:49 Compartment syndrome with Chris unit performed by Dr Faulkner. ma 11:40 Labs drawn. (by ED staff). Held in ED. Inserted peripheral IV: 20 gauge in left forearm cb and blood collected. Administered Medications: 06/24 23:32 Drug: Dilaudid 2 mg; Route: IM; Site: left deltoid; lb 06/25 00:16 Follow up: Response: Pain is decreased lb 05:47 Drug: Dilaudid 2 mg; Route: IM; Site: left deltoid; lb 07:24 Follow up: Response: Pain is decreased cb Outcome: 00:11 Discharge ordered by . wy 10:48 Decision to Admit by Provider. wy 11:26 Admitted to Med/surg ma 11:26 Condition: stable 11:26 Report given to Sejal LUCIO 11:26 Instructed on need to admit Ortho Care 11:28 Patient left the ED. ma Signatures: Machelle Polk RN RN cb Abuso, Melanie, RN RN ma Chew, Scott, MD MD sc Meinking-reg, Con em2 Gabbi Wu
[2016-06-25] MEDS: HYDROmorphone HCL 1 MG/ML SYR IV PRN ×3 (12:21→19:41)
[2016-06-25] MEDS ORDERED: CYCLOBENZAPRINE HCL 10 MG TABLET PO PRN (14:03)
[2016-06-25] MEDS ORDERED: GABAPENTIN 300 MG CAPSULE PO PRN (14:03)
[2016-06-25] MEDS ORDERED: NORMAL SALINE FLUSH 250 ML ONE (14:06)
[2016-06-25] MEDS: SPIRONOLACTONE 25 MG TABLET PO SCH (15:09)
[2016-06-25] MEDS: DOXYCYCLINE 100 MG CAPSULE PO SCH (15:10)
[2016-06-25] MEDS ORDERED: SODIUM CHLORIDE NASAL SPRAY 44 SPRAY/44 ML BTL NASAL PRN (15:48)
[2016-06-25] MEDS ORDERED: ONDANSETRON HCL 4 MG/2 ML VIAL IV PRN (16:05)
[2016-06-25] MEDS ORDERED: ONDANSETRON HCL 4 MG/2 ML VIAL ONE (16:09)
[2016-06-25] MEDS: ACETAMINOPHEN 325 MG TABLET PO PRN ×2 (17:12→17:14)
[2016-06-25] MEDS ORDERED: FENTANYL 25 MCG TRANSDERM SCH (19:30)
[2016-06-25] MEDS: MELOXICAM 7.5 MG TABLET PO SCH (20:26)
[2016-06-25] MEDS: GABAPENTIN 300 MG CAPSULE PO SCH (20:26)
[2016-06-26] MEDS: HYDROmorphone HCL 1 MG/ML SYR IV PRN (01:25)
[2016-06-26] MEDS: ACETAMINOPHEN 325 MG TABLET PO PRN ×2 (03:33→12:38)
--- NOTE | 2016-06-26 08:03 | HISTORY & PHYSICAL ---
DATE OF CONSULTATION: 06/25/16 PHYSICIAN: Simeon Faulkner DO HISTORY OF PRESENT ILLNESS: Patient is a 45-year-old female who was walking in the parking lot of the [employer] and fell and fractured her arm. She was seen in the emergency room, and was splinted and was discharged home. This occurred on 06/22/16. The patient was discharged home with a reduction of her fracture, a sugar tong splint and oral pain medicine. The patient came back to the emergency room the next day complaining of severe wrist pain and arm pain, and was admitted to the hospital for observation and neurovascular checks and underwent open reduction internal fixation the next day on 06/24/16 of the distal radius. The patient tolerated the procedure well and was discharged home following the procedure. She presented back to the emergency room today, , complaining of arm and wrist pain. The patient has a history of right upper extremity peripheral neuropathy for which she takes Gabapentin. She also takes Percocet and Meloxicam. Her peripheral neuropathy is evidently the result of some bulging disks in her neck. Additionally, she has had multiple surgeries on her right shoulder, which she notes has also contributed to severe pain in her right upper extremity with paresthesias and severe pain in her arm, shoulder and hand. Due to the patient s severe pain history, the anesthesia provider provided the patient with an interscalene block prior to her surgery, which helped her significantly postoperatively PAST MEDICAL HISTORY 1. Right shoulder open reduction internal fixation with 2-3 subsequent arthroscopies. 2. Peripheral neuropathy. ALLERGIES: No known drug allergies. MEDICATIONS Gabapentin. Percocet. Dilaudid. Spiranolactone. Meloxicam. Doxycycline. SOCIAL HISTORY: She has never been a smoker. She uses alcohol occasionally on a social basis. PHYSICAL EXAMINATION HEENT: Pupils are equally round and reactive to light and accommodation. Extraocular muscles are intact. CHEST: Clear to auscultation bilaterally. No wheezes, rales or rhonchi. HEART: Regular rate and rhythm with normal S1, S2. ABDOMEN: Soft, nontender, nondistended. EXTREMITIES: Examination of the right upper extremity after removal of her splint, demonstrates swelling of the distal forearm and dorsum of the hand, which is consistent with the patients history of a distal radius fracture and subsequent open reduction, internal fixation. The compartments of the forearm are swollen but they are soft and supple. The dorsum of the hand is swollen. The fingers are warm with a brisk capillary refill at the nailbeds of all the fingers. The patient has sensation in all of her fingers and on a scale of 1-10 with 10 being completely normal and 0 being no sensation at all, the patient states that she has a 5/10 sensation in her fingers. With gentle and slow passive motion of the fingers, there is no pain on this passive stretch; however , if the fingers are moved quickly, she does have pain around the fracture site. The complete hand, wrist, fingers and forearm are all warm and well perfused with a skin tone which was slightly more pink than the rest of her extremities. The patients incision was also examined with the Xeroform dressing left in place to maintain a sterile dressing; however, there was no significant swelling and there was no drainage around the incision. As the patient did recently have a nerve block from the surgery, which could be potentially masking a compartment syndrome, and with the patients complicated upper extremity paresthesias, I decided to perform a compartment pressure check with a striker needle. This was calibrated appropriately and zeroed out at the angle of injury with the needle where 2 pressure readings were obtained, one in the forearm where the patient did have some swelling and the second being down closer near the fracture site. Both on the dorsum of the wrist as the volar aspect of the wrist was more soft and supple compared to the swelling, which was noted on the dorsum of the wrist. The Striker needle read 14 mmHg at the forearm location and 22 mmHg at the fracture site, which were both within normal limits, ruling out a compartment syndrome. Also demonstrated on the hospital floor a few hours later, was an oxygen saturation on the affected side as read on the middle finger of 90% oxygen saturation and that was on room air and 96% on the contralateral or left middle finger. The patients motor as examined in the emergency room was also intact, with the patient able to flex and extend all of her fingers and thumb. She does have more pain with any motion of her thumb. ASSESSMENT: Postoperative pain in the setting of preexisting peripheral neuropathy. PLAN: The patient will be admitted to the hospital for neurovascular checks and monitoring and compartment monitoring. The patients arm will be elevated slightly above heart level with ice in place, and a well-padded loosely wrapped volar splint in place. This patient presents with a somewhat complex picture with a preexisting peripheral neuropathy, recent scalene block for anesthesia and a fracture which underwent open reduction, internal fixation. She will be closely monitored. She will be restarted on her home medications and the Neurontin will be increased. MTDD
[2016-06-26] MEDS: GABAPENTIN 300 MG CAPSULE PO SCH ×2 (09:19→17:22)
[2016-06-26] MEDS: MELOXICAM 7.5 MG TABLET PO SCH (09:20)
[2016-06-26] MEDS: DOXYCYCLINE 100 MG CAPSULE PO SCH (09:20)
[2016-06-26] MEDS: SPIRONOLACTONE 25 MG TABLET PO SCH (09:20)
[2016-06-26] MEDS ORDERED: POLYETHYLENE GLYCOL 3350 17 GM POWD.PACK PO PRN (09:47)
[2016-06-26 16:25] VITALS: BP 108/50; PULSE 72; RESP 18; TEMP 98; O2SAT 92
--- NOTE | 2016-06-26 16:38 | DC SUMMARY: Orthopedic Note ---
Discharge Summary: Surg/OB Provider: Date of Admission: 06/25/16 Admitting Provider: JUAN MIGUEL TITUS DO Attending Provider: JUAN MIGUEL TITUS DO Discharging Provider: JUAN MIGUEL TITUS DO Primary Care Provider: Discharge Date: 06/26/16 - Diagnosis (1) Closed fracture of right distal radius and ulna Status: Acute Qualifiers: Encounter type: initial encounter Qualified Code(s): S52.501A - Unspecified fracture of the lower end of right radius, initial encounter for closed fracture; S52.601A - Unspecified fracture of lower end of right ulna, initial encounter for closed fracture Hospital Course: Ms. SESAY is a 45 year old female who was admitted to the hospital for severe right arm pain. With appropriate ice and elevation the patient's pain improved as did the sensation in her fingers. The swelling in the patient's right upper extremity also improved. the patient will be discharged home today and will be given instructions to continue with appropriate elevation and analgesia. Discharge - Patient/Caregiver Discharge Instructions Diet: Regular Overall discharge status: patient is progressing back to baseline Home Medications: Fentanyl [DURAGESIC 25mcg/HR*] 25 mcg TRANSDERM Q72H #2 patch.[id number] Disposition: HOME, SELF-CARE 1. Medical reason for no anticoagulation order on D/C?: Treatment not indicated 2. Medical reason for no anticoag overlap on D/C?: Treatment not indicated Orthopedic: Discharge Phy Exam - Latest Vital Signs and I&O Latest Vital Signs/I&O: Vital Signs Temp 36.6 C 06/26/16 15:00 Pulse 72 06/26/16 15:00 Resp 18 06/26/16 15:00 BP 108/50 06/26/16 15:00 Pulse Ox 92 06/26/16 15:00 Intake & Output 06/25/16 06/26/16 06/26/16 17:59 05:59 17:59 Intake Total 720 Output Total 600 Balance 120 Weight 63.503 kg 63.503 kg 63.503 kg Intake: Oral 720 Output: Urine 600 Other: Urine Appearance Clear Clear Urine Color Yellow Yellow Voiding Method Toilet Toilet # Voids 2 - Post-Operative Exam Post-op Day: 2 Dressing Status: dry & intact Drainage Amount: none Active Motor: intact Sensation: abnormal (the patient's sensation in her fingers has improved from 5/ 10 to 8/10 over the admission.) - Allied Health Notes Allied health notes reviewed: nursing, PT Discharge Summary Data - Medication History Medication History: Home Medications Cyclobenzaprine HCl [Flexeril*] 10 mg PO TID PRN 06/25/16 Dextroamphetamine/Amphetamine [Adderall 30 mg Tablet] 30 mg PO BID 06/25/16 Doxycycline [Doxycycline Hyclate*] 100 mg PO DAILY 06/25/16 Gabapentin 300 mg PO HS PRN 06/25/16 HYDROmorphone HCL [Dilaudid*] 2 mg PO QID PRN 06/25/16 Meloxicam 15 mg PO DAILY@1200 06/25/16 Phenylephrine HCl [Nasal Decongestant PE] 10 mg PO DAILY PRN 06/25/16 Spironolactone [Aldactone*] 25 mg PO DAILY 06/25/16 Triamcinolone Acetonide [Nasacort] 1 spray NASAL DAILY PRN 06/25/16 oxyCODONE HCL/ACETAMINOPHEN [Endocet 7.5-325 mg Tablet] 1 tab PO Q6H PRN Inpatient Medications 06/25/16 14:15 Doxycycline [Doxy] 100 mg PO DAILY 06/25/16 15:00 Spironolactone [Aldactone] 25 mg PO DAILY 06/25/16 15:48 Sodium Chloride Nasal [place] [[place] Nasal [place]] 1 spray NASAL Q1H PRN 06/25/16 16:05 Ondansetron HCl [Zofran] 4 mg IV Q6H PRN 06/25/16 16:35 Acetaminophen [Tylenol] 650 mg PO Q6H PRN oxyCODONE HCL IR [Oxy Ir] 5 mg PO Q3H PRN 06/25/16 19:30 Fentanyl [DURAGESIC 25mcg/HR] 25 mcg TRANSDERM Q72H 06/25/16 20:00 Meloxicam [Mobic] 15 mg PO DAILY 06/25/16 21:00 Gabapentin [Neurontin] 300 mg PO TID 06/26/16 09:47 Polyethylene Glycol 3350 [miraLAX] 17 gm PO DAILY PRN Procedures and tests throughout hospitalization: Pending Orders 06/25/16 14:15 Doxycycline [Doxy] 100 mg PO DAILY 06/25/16 15:00 Spironolactone [Aldactone] 25 mg PO DAILY 06/25/16 15:48 Sodium Chloride Nasal [place] [[place] Nasal [place]] 1 spray NASAL Q1H PRN 06/25/16 16:05 Ondansetron HCl [Zofran] 4 mg IV Q6H PRN 06/25/16 16:35 Acetaminophen [Tylenol] 650 mg PO Q6H PRN oxyCODONE HCL IR [Oxy Ir] 5 mg PO Q3H PRN 06/25/16 19:18 Oxygen by Nasal Cannula TITRATE TO >90% 06/25/16 19:30 Fentanyl [DURAGESIC 25mcg/HR] 25 mcg TRANSDERM Q72H 06/25/16 20:00 Meloxicam [Mobic] 15 mg PO DAILY 06/25/16 21:00 Gabapentin [Neurontin] 300 mg PO TID 06/26/16 09:47 Polyethylene Glycol 3350 [miraLAX] 17 gm PO DAILY PRN - Impressions The patient's swelling, sensation and pain has improved and appears that it will continue to improve with the current treatment.
== END 2016-06-26 17:03 | disposition home or self-care (01) ==
LOC: ER 23:14 → IN 06-25 11:26
PROVIDERS: ADMIT Orthopaedic Surgery; ATTEND Orthopaedic Surgery
DX: G89.18 Other acute postprocedural pain (principal); S52.591D Other fractures of lower end of right radius, subsequent encounter for closed fracture with routine healing; T84.84XA Pain due to internal orthopedic prosthetic devices, implants and grafts, initial encounter; G62.89 Other specified polyneuropathies
CPT/HCPCS: 96372; 96374; 96375; 96376; 99285; G0378; J1170; J2405

== ENCOUNTER 2016-10-27 11:29 | Emergency (ER) | payer MEDICAID ==
[2016-10-27] MEDS ORDERED: LORazepam 1 MG TABLET ONE (12:05)
--- NOTE | 2016-10-27 13:42 | ER NURSING DOCUMENTATION ---
Nurse's Notes [facility] Name:Marbella Joyner Age:46 yrs Sex:Female :1970 Arrival Date:10/27/2016 Time:11:29 Bed4 Private MD:Tripp Fountain Diagnosis:Anxiety Reaction Presentation: 10/27 11:32 Acuity: MARITA 3 lp 11:41 Presenting complaint: Patient states: Chest pressure and severe anxiety. Transition of lp care: Home. 11:41 Method Of Arrival: Private Vehicle lp Triage Assessment: 11:46 General: Appears in no apparent distress, Behavior is anxious. Pain: Complains of pain lp in right arm Pain currently is 4 out of 10 on a pain scale. EENT: No deficits noted. Neuro: No deficits noted. Cardiovascular: Capillary refill < 3 seconds Heart tones S1 S2 Pulses are all present. Reports shortness of breath Denies Rhythm is regular. Respiratory: Breath sounds are clear bilaterally. GI: No deficits noted. : No deficits noted. Derm: No deficits noted. Musculoskeletal: No deficits noted. Historical: - Allergies: SULFA (SULFONAMIDES); - Home Meds: 1. doxycycline monohydrate 50 mg oral cap 1 cap 2 times per day for Acne Vulgaris 2. alprazolam 0.5 mg oral tab 1 tab 3 times per day 3. Percocet 7.5-325 mg oral tab 1 tab every 6 hours for Pain 4. Cipro 250 mg oral tab 1 tab every 12 hours 5. Adderall XR 30 mg oral cp24 1 cap once daily upon awakening for Attention-Deficit Hyperactivity Disorder 6. meloxicam 15 mg oral tab 1 tab once daily 7. cyclobenzaprine 10 mg oral tab 1 tab 2 times per day as needed for Muscle Spasm 8. gabapentin 300 mg oral cap 1 cap nightly for Neuropathic Pain - PMHx: ADHD; CHRONIC PAIN; ANXIETY; bladder infection; - PSHx: R shoulder Surgery; R wrist surgery; Appendectomy; ovarian cyst removal; - Tetanus: < 10 years. - Ebola Screening: : Patient negative for fever greater than or equal to 101.5 degrees Fahrenheit, and additional compatible Ebola Virus Disease symptoms. Patient denies exposure to infectious person. Patient denies travel to an Ebola-affected area in the 21 days before illness onset. . - Immunization history: Flu Vaccine < 1 year. - Social history: Smoking status: Patient states was never smoker of tobacco. Screenin:48 Infectious Disease Risk None. Abuse screen: Denies threats or abuse. Denies injuries lp from another. Nutritional screening: No deficits noted. Suicide Risk Assessment: Suicidal Thinking Present - No ( 0 points). Assessment: 11:48 See Triage Assessment done by same RN. lp Vital Signs: 11:47 BP 133 / 117; Pulse 124; Resp 16; Temp 97.6; Pulse Ox 98% on R/A; Weight 63.5 kg; lp Height 5 ft. 6 in. (167.64 cm); Pain 4/10; 13:37 BP 150 / 96; Pulse 104; Resp 14; Pulse Ox 100% on R/A; lp 11:47 Body Mass Index 22.60 (63.50 kg, 167.64 cm) lp ED Course: 11:30 Patient arrived in ED. jt 11:30 Tripp Fountain is Private Physician. jt 11:32 Neeta Sethi RN is Primary Nurse. lp 11:32 Triage completed. lp 11:37 Braulio Rahman MD is Attending Physician. tl1 11:44 EKG done. (by ED staff). Reviewed by Braulio Rahman MD. arc 11:[address] Rahman notified. lp 11:49 Valuables Remains with patient Patient has correct armband on for positive lp identification. Placed in gown. Bed in low position. Call light in reach. 11:52 EKG attached 13:29 Tripp Fountain is Referral Physician. tl1 Administered Medications: 11:52 Drug: Ativan 1 mg; Route: PO; lp 12:35 Follow up: Response: Anxiety decreased lp Outcome: 13:30 Discharge ordered by . tl1 13:38 Discharged to home ambulatory. lp 13:38 Condition: improved 13:38 Instructed on discharge instructions, follow up and referral plans. medication usage. 13:41 Patient left the ED. lp Signatures: Neeta Sethi, KHADIJAH RN Braulio Tse MD MD tl1 Eunice Flanagan, Reg Reg arc Zenaida Tracy Sarah sj
--- NOTE | 2016-10-27 13:42 | ER PHYSICIAN DOCUMENTATION ---
Physician Documentation [facility] Name:Marbella Joyner Age:46 yrs Sex:Female :1970 Arrival Date:10/27/2016 Time:11:29 Bed4 Private MD:Tripp Fountain ED LaceyBraulio Disposition: 10/28 22:47 Chart complete. tl1 Disposition: 10/27/16 13:30 Discharged to Home/Self Care. Impression: Anxiety Reaction. - Condition is Good. - Discharge Instructions: Anxiety - ANXIETY REACTION. - Prescriptions for Xanax 1 mg Oral - take 1 tablet by ORAL route every 8 hours As needed; 10 tablet. - Medical Reconciliation form form. - Follow up: Tripp Fountain; When: 4- 6 days; Reason: Recheck today's complaints, Continuance of care. - Problem is new. - Symptoms have improved. HPI: 10/27 11:38 This 46 yrs old Female presents to ER with complaints of Anxiety. tl1 11:40 The patient presents to the emergency department with anxiety. Onset: The tl1 symptom(s)/episode began/occurred gradually. Past psychiatric history: Psychiatric medications include: Xanax, Zyprexa, adderal. Associated signs and symptoms: Pertinent negatives: abdominal pain, chest pain, delusions, depression, hallucinations, homicidal ideation, substance abuse, suicide ideation. Severity of symptoms: At their worst the symptoms were moderate in the emergency department the symptoms are unchanged. The patient has experienced similar episodes in the past, multiple times, today's symptoms are similar. Historical: - Allergies: SULFA (SULFONAMIDES); - Home Meds: 1. doxycycline monohydrate 50 mg oral cap 1 cap 2 times per day for Acne Vulgaris 2. alprazolam 0.5 mg oral tab 1 tab 3 times per day 3. Percocet 7.5-325 mg oral tab 1 tab every 6 hours for Pain 4. Cipro 250 mg oral tab 1 tab every 12 hours 5. Adderall XR 30 mg oral cp24 1 cap once daily upon awakening for Attention-Deficit Hyperactivity Disorder 6. meloxicam 15 mg oral tab 1 tab once daily 7. cyclobenzaprine 10 mg oral tab 1 tab 2 times per day as needed for Muscle Spasm 8. gabapentin 300 mg oral cap 1 cap nightly for Neuropathic Pain - PMHx: ADHD; CHRONIC PAIN; ANXIETY; bladder infection; - PSHx: R shoulder Surgery; R wrist surgery; Appendectomy; ovarian cyst removal; - Tetanus: < 10 years. - Ebola Screening: : Patient negative for fever greater than or equal to 101.5 degrees Fahrenheit, and additional compatible Ebola Virus Disease symptoms. Patient denies exposure to infectious person. Patient denies travel to an Ebola-affected area in the 21 days before illness onset. . - Immunization history: Flu Vaccine < 1 year. - Social history: Smoking status: Patient states was never smoker of tobacco. ROS: 11:40 Cardiovascular: Negative for chest pain, orthopnea, palpitations, paroxysmal nocturnal tl1 dyspnea. 11:40 Respiratory: Negative for cough, dyspnea on exertion, hemoptysis, pleurisy, shortness of breath, sputum production, wheezing. 11:40 Psych: Positive for insomnia, Negative for drug dependence, alcohol dependence, auditory hallucinations, visual hallucinations, homicidal ideation. Exam: 11:40 Head/Face: Normocephalic, atraumatic. tl1 Eyes: Pupils equal round and reactive to light, extra-ocular motions intact. Lids and lashes normal. Conjunctiva and sclera are non-icteric and not injected. Cornea within normal limits. Periorbital areas with no swelling, redness, or edema. Neck: Trachea midline, no thyromegaly or masses palpated, and no cervical lymphadenopathy. Supple, full range of motion without nuchal rigidity, or vertebral point tenderness. No Meningismus. Chest/axilla: Normal chest wall appearance and motion. Nontender with no deformity. No lesions are appreciated. Cardiovascular: Regular rate and rhythm with a normal S1 and S2. No gallops, murmurs, or rubs. Normal PMI, no JVD. No pulse deficits. Respiratory: Lungs have equal breath sounds bilaterally, clear to auscultation and percussion. No rales, rhonchi or wheezes noted. No increased work of breathing, no retractions or nasal flaring. 11:40 Abdomen/GI: Soft, non-tender, with normal bowel sounds. No distension or tympany. No tl1 guarding or rebound. No evidence of tenderness throughout. 11:40 Constitutional: The patient appears alert, awake, comfortable, non-diaphoretic, non-toxic, well developed, well hydrated, well groomed, well nourished, anxious. 11:40 Neuro: Exam negative for acute changes. 11:40 Psych: exam not indicated, Behavior/mood is pleasant, cooperative, anxious, Affect is animated, Oriented to person, place, time, Patient has no thoughts/intents to harm self or others. Judgement / Insight is normal. Memory is normal. Delusions/hallucinations are not present. Vital Signs: 11:47 BP 133 / 117; Pulse 124; Resp 16; Temp 97.6; Pulse Ox 98% on R/A; Weight 63.5 kg; lp Height 5 ft. 6 in. (167.64 cm); Pain 4/10; 13:37 BP 150 / 96; Pulse 104; Resp 14; Pulse Ox 100% on R/A; lp 11:47 Body Mass Index 22.60 (63.50 kg, 167.64 cm) lp MDM: 11:38 Patient medically screened. tl1 11:40 Data reviewed: vital signs, nurses notes, EKG, and as a result, I will discharge tl1 patient. Counseling: I had a detailed discussion with the patient and/or guardian regarding: the historical points, exam findings, and any diagnostic results supporting the discharge/admit diagnosis, the need for outpatient follow up, to return to the emergency department if symptoms worsen or persist or if there are any questions or concerns that arise at home. ECG:. 11:52 EKG attached 10/28 11:44 Response to treatment: the patient's symptoms have markedly improved after treatment, tl1 and as a result, I will discharge patient. ED course: Much better at the time of d/c. EC:44 Rate is 111 beats/min. Rhythm is regular. QRS [place] is Normal. GA interval is normal at tl1 143 msec. QRS interval is normal at 82 msec. QT interval is normal at 335 msec. No Q waves. T waves are Normal. No ST changes noted. Clinical impression: Sinus tachycardia. Interpreted by me. Reviewed by me. Dispensed Medications: 10/27 11:52 Drug: Ativan 1 mg; Route: PO; lp 12:35 Follow up: Response: Anxiety decreased lp Signatures: Neeta Sethi RN RN Braulio Rahman MD MD tl1 Candida Radford
== END 2016-10-27 13:42 | disposition home or self-care (01) ==
LOC: ER 11:29
DX: F41.9 Anxiety disorder, unspecified (principal); G47.30 Sleep apnea, unspecified; R00.0 Tachycardia, unspecified; Z79.899 Other long term (current) drug therapy
CPT/HCPCS: 93005; 99283